=== PATIENT | male | born 1990 | race Caucasian/White ===

== ENCOUNTER 2018-04-04 10:11 | Emergency (ER) | payer BC, OTHER, SELFPAY ==
[2018-04-04] MEDS ORDERED: Lidocaine 1% 20 ML MDV ONE (10:30)
[2018-04-04] MEDS ORDERED: Bacitracin Zinc 1 Packet ONE (10:40)
== END 2018-04-04 10:45 | disposition home or self-care (01) ==
LOC: SCSER 10:11
DX: S61.012A Laceration without foreign body of left thumb without damage to nail, initial encounter (principal); W31.0XXA Contact with mining and earth-drilling machinery, initial encounter
CPT/HCPCS: 12001; J2001